=== PATIENT | male | born 1995 ===

== ENCOUNTER 2018-04-06 11:31 | Emergency (ER) | payer MEDICAID, OTHER ==
[2018-04-06 11:41] VITALS: BMI 20.3
[2018-04-06 11:48] VITALS: TEMP 100.1
[2018-04-06 13:11] VITALS: O2SAT 100
--- NOTE | 2018-04-06 13:56 | RAD ---
Date of service: 04/06/2018 HISTORY: cough COMPARISON: No prior. TECHNIQUE: Chest PA and lateral FINDINGS: LUNGS: No active pulmonary disease. PLEURA: No significant pleural effusion identified. No pneumothorax apparent. CARDIOVASCULAR: No aortic atherosclerotic calcification present. Normal cardiac size. No pulmonary vascular congestion. OSSEOUS STRUCTURES: No significant abnormalities. VISUALIZED UPPER ABDOMEN: Normal. OTHER FINDINGS: None. IMPRESSION: No active disease.
[2018-04-06 14:16] VITALS: BP 131/80; PULSE 76; RESP 18
--- NOTE | 2018-04-06 14:45 | C.PDOC ---
History Of Present Illness 22 year old male, with no past medical history, presents to the ED for evaluation of cough associated with chest discomfort, dizziness, vomiting, runny nose, and generalized body aches which began last night. Patient states that his car was in the shop for repair two days ago. He states he was driving around in his car the following day and says there was a "strong odor" in the car and suspects he might have been exposed to carbon monoxide. Patient denies chest pain, or vomiting today. He denies SOB, fever, chills. Time Seen by Provider: 04/06/18 11:57 Chief Complaint (Nursing): GI Problem History Per: Patient History/Exam Limitations: no limitations Onset/Duration Of Symptoms: Hrs Current Symptoms Are (Timing): Still Present Additional History Per: Patient Past Medical History Reviewed: Historical Data, Nursing Documentation, Vital Signs Vital Signs: Last Vital Signs Temp 100.1 F H 04/06/18 11:40 Pulse 76 04/06/18 14:15 Resp 18 04/06/18 14:15 BP 131/80 04/06/18 14:15 Pulse Ox 100 04/06/18 14:15 - Medical History PMH: No Chronic Diseases Surgical History: No Surg Hx Family History: States: Unknown Family Hx - Social History Hx Tobacco Use: No Hx Alcohol Use: Yes Hx Substance Use: No - Immunization History Hx Tetanus Toxoid Vaccination: No Hx Influenza Vaccination: No Hx Pneumococcal Vaccination: No Review Of Systems Constitutional: Negative for: Fever, Chills ENT: Positive for: Nose Discharge Respiratory: Positive for: Cough Gastrointestinal: Positive for: Vomiting Musculoskeletal: Positive for: Other (generalized body aches ) Neurological: Positive for: Dizziness Physical Exam - Physical Exam Appears: Non-toxic, No Acute Distress Skin: Normal Color, Warm, Dry Head: Atraumatic, Normacephalic Eye(s): bilateral: Normal Inspection Neck: Supple Chest: Symmetrical, No Deformity, No Tenderness Cardiovascular: Rhythm Regular, No Murmur Respiratory: No Rales, Rhonchi (scattered ), No Wheezing Gastrointestinal/Abdominal: Soft, No Tenderness, No Guarding, No Rebound Extremity: Normal ROM, Capillary Refill (less than 2 seconds ) Neurological/Psych: Oriented x3, Normal Speech, Normal Cognition ED Course And Treatment O2 Sat by Pulse Oximetry: 100 (on RA) Pulse Ox Interpretation: Normal - Other Rad CXR X-Ray: Viewed By Me, Read By Radiologist Interpretation: Date of service: 04/06/2018. HISTORY: cough. COMPARISON: No prior. TECHNIQUE: Chest PA and lateral. FINDINGS: LUNGS: No active pulmonary disease. PLEURA: No significant pleural effusion identified. No pneumothorax apparent. CARDIOVASCULAR: No aortic atherosclerotic calcification present. Normal cardiac size. No pulmonary vascular congestion. OSSEOUS STRUCTURES: No significant abnormalities. VISUALIZED UPPER ABDOMEN: Normal. OTHER FINDINGS: None. IMPRESSION: No active disease. Medical Decision Making Medical Decision Making: Progress: CXR and flu swab ordered and reviewed. Patient is positive for Flu A. Plan Tamiflu, tylenol for fever and f/u w/clinic. Disposition Counseled Patient/Family Regarding: Studies Performed, Diagnosis, Need For Followup - Disposition Referrals: [facility] [Outside] Disposition: HOME/ ROUTINE Disposition Time: 14:10 Condition: STABLE Additional Instructions: VIRGIE BARBOUR, thank you for letting us take care of you today. Your provider was Lo Rowe MD and you were treated for CARBON MONOXIDE EXPOSURE. The emergency medical care you received today was directed at your acute symptoms. If you were prescribed any medication, please fill it and take as directed. It may take several days for your symptoms to resolve. Return to the Emergency Department if your symptoms worsen, do not improve, or if you have any other problems. Please contact your doctor or call one of the physicians/clinics you have been referred to that are listed on the Patient Visit Information form that is included in your discharge packet. Bring any paperwork you were given at discharge with you along with any medications you are taking to your follow up visit. Our treatment cannot replace ongoing medical care by a primary care provider outside of the emergency department. Thank you for allowing the [facility] team to be part of your care today. Prescriptions: Oseltamivir Phosphate [Tamiflu] 75 mg PO BID #10 capsule Instructions: Flu, Adult (DC) Forms: General Discharge Instructions, Mind Candy ([place]), School Excuse - POA Present On Arrival: None - Clinical Impression Clinical Impression: Influenza A - Scribe Statement The provider has reviewed the documentation as recorded by the Scribe (Amisha Walters) Provider Attestation: All medical record entries made by the Scribe were at my direction and personally dictated by me. I have reviewed the chart and agree that the record accurately reflects my personal performance of the history, physical exam, medical decision making, and the department course for this patient. I have also personally directed, reviewed, and agree with the discharge instructions and disposition.
== END 2018-04-06 14:22 | disposition home or self-care (01) ==
LOC: C.ER 11:31
DX: J09.X2 Influenza due to identified novel influenza A virus with other respiratory manifestations (principal)